=== PATIENT | male | born 1970 | race Caucasian/White ===

== ENCOUNTER 2022-03-02 16:29 | Outpatient (CLI) | payer OTHER, SELFPAY ==
--- NOTE | 2022-03-02 17:04 | XRR_ITS ---
PROCEDURE INFORMATION: Exam: XR Right Ankle Exam date and time: 03/02/2022 5:17 PM Age: 51 years old Clinical indication: Ankle; Right; Patient HX: Walking and felt sharp pain; Additional info: Strain tendon on right ankle TECHNIQUE: Imaging protocol: Radiologic exam of the Right ankle. Views: 3 or more views. AP Oblique Lateral COMPARISON: No relevant prior studies available. FINDINGS: Bones/joints: There is normal alignment without fractures or dislocations. Medium-sized lateral and small medial malleolar degenerative osteophytes are seen. Small well corticated 0.5 x 0.2 cm ossicle is seen distal to the lateral malleolus. These findings are suggestive of degenerative change. The tibiotalar joint shows mild joint space narrowing, suggestive of degenerative change. The subtalar joint shows [id number] degenerative changes. There is no ankle joint effusion. The mortise is normal. The distal tibia-fibular alignment is unremarkable. Medium-sized plantar calcaneal spur is seen. Soft tissues: There is mild ankle region soft tissue swelling, medial greater than lateral. There are no radiopaque foreign bodies. Notes: If there is further concern, recommend follow-up radiographs or MRI for complete assessment. XR/XR ankle RT min 3V* [id number] IMPRESSION: No fractures or dislocation of the right ankle. Degenerative changes of the right ankle, as noted above. Mild ankle region soft tissue swelling.
--- NOTE | 2022-03-02 17:16 | XRR_ITS ---
PROCEDURE INFORMATION: Exam: XR Left Toe(s) Exam date and time: 03/02/2022 5:17 PM Age: 51 years old Clinical indication: Pain and injury or trauma; Swelling, leg or foot; Blunt trauma; Left and left lesser toe(s); Patient HX: Stubbed toe and has swelling, Dr willingham bandaged 1-3rd toes together; Additional info: Injury to left toe TECHNIQUE: Imaging protocol: Radiologic exam of the Left toes. Views: Minimum 2 views. Frontal Oblique Lateral COMPARISON: No relevant prior studies available. FINDINGS: Bones/joints: Mild hallux valgus alignment abnormality. Flexion of the 2nd through 4th visualized toes, which limits assessment. Moderate toe interphalangeal joint and 1st metatarsophalangeal joint space narrowing, suggestive of osteoarthritic change. No definite fracture deformities visualized. Osteopenia, which limits assessment. Soft tissues: Mild toe region soft tissue swelling. No radiopaque foreign bodies. Other findings: Further views of the toes or follow-up radiographs may be obtained, if there is further clinical concern. Notes: If there is further concern, recommend follow-up radiographs or bone scan for complete assessment. XR/XR toe LT min 2V [id number] IMPRESSION: No definite fractures of the toes, as noted above. Mild soft tissue swelling. Assessment limited.
== END 2022-03-02 16:30 | disposition home or self-care (01) ==
PROVIDERS: PCP Family Medicine; Visit Provider Nurse Practitioner Family
DX: S96.911A Strain of unspecified muscle and tendon at ankle and foot level, right foot, initial encounter (principal); M79.89 Other specified soft tissue disorders; X58.XXXA Exposure to other specified factors, initial encounter
CPT/HCPCS: 73610; 73660

== ENCOUNTER → 2024-11-28 12:08 | Outpatient (BNVA) | payer OTHER, SELFPAY | PROVIDERS: PCP Family Medicine; Visit Provider Family Medicine | DX: Z13.6 Encounter for screening for cardiovascular disorders (principal); Z79.4 Long term (current) use of insulin; E11.9 Type 2 diabetes mellitus without complications | CPT/HCPCS: 80053; 80061; 82043; 83036; 85025 ==